=== PATIENT | female | born 2000 | race Caucasian/White ===

== ENCOUNTER 2023-11-25 23:35 | Emergency (ER) | payer BC ==
[~2023-11-25] VITALS: Ht 162.6 cm; Wt 69.0 kg
[2023-11-25 23:53] VITALS: BP 122/75; RESP 16; TEMP 98.1; O2SAT 100
[2023-11-25 23:56] VITALS: PULSE 106
== END 2023-11-26 01:43 | disposition home or self-care (01) ==
LOC: ER 23:52
DX: S00.83XA Contusion of other part of head, initial encounter (principal); F19.90 Other psychoactive substance use, unspecified, uncomplicated; W01.0XXA Fall on same level from slipping, tripping and stumbling without subsequent striking against object, initial encounter; Y93.89 Activity, other specified; Y92.89 Other specified places as the place of occurrence of the external cause; Y99.8 Other external cause status
CPT/HCPCS: 99284